=== PATIENT | female | born 1935 ===

== ENCOUNTER 2017-06-18 15:41 | Emergency (ER) | payer OTHER ==
[2017-06-18 15:41] VITALS: BMI 28.4
[2017-06-18 16:05] VITALS: RESP 17; TEMP 98.4
[2017-06-18 19:02] LABS: ALB/GLOB RATIO 1.5 (1.0-2.1); ALKALINE PHOSPHATASE 99 U/L (38-126); ALT/SGPT 51 U/L (9-52); AST/SGOT 36 U/L (14-36); BILIRUBIN,TOTAL 0.3 mg/dL (0.2-1.3); BLOOD UREA NITROGEN 16 mg/dL (7-17); CALCIUM 7.3 mg/dl (8.6-10.4); CARBON DIOXIDE 25 mmol/L (22-30); CHLORIDE 103 mmol/L (98-107); GFR AFRICAN-AMERICAN > 60; GLUCOSE,RANDOM 92 mg/dL (65-105); POTASSIUM 4.2 mmol/L (3.6-5.2); SODIUM 137 mmol/L (132-148); TOTAL PROTEIN 6.6 g/dL (6.3-8.3)
[2017-06-18 19:06] LABS: BASO # 0.1 K/uL (0.0-0.2); BASO % 0.9 % (0.0-2.0); EOS # 0.3 K/uL (0.0-0.7); EOS % 3.1 % (0.0-4.0); HEMATOCRIT 35.8 % (34.0-47.0); LYMPH % 31.7 % (20.0-40.0); MEAN CELL VOLUME 92.3 fL (81.0-99.0); MEAN CORPUSCULAR HEMOGLOBIN 30.9 pg (27.0-31.0); MEAN CORPUSCULAR HGB CONC 33.5 g/dL (33.0-37.0); MEAN PLATELET VOLUME 10.4 fL (7.2-11.7); MONO # 0.8 K/uL (0.0-0.8); MONO % 7.9 % (0.0-10.0); NRBC % 0.2 % (0.0-2.0); RED CELL DISTRIBUTION WIDTH 14.1 % (11.5-14.5); WHITE BLOOD COUNT 9.6 K/uL (4.8-10.8)
[2017-06-18 19:14] LABS: RBC URINE 1 /hpf (0-3); URINE BILIRUBIN NEGATIVE (NEGATIVE); URINE BLOOD NEGATIVE (NEGATIVE); URINE COLOR Straw (YELLOW); URINE GLUCOSE (UA) NORMAL (Normal); URINE KETONE NEGATIVE (NEGATIVE); URINE LEUKOCYTE ESTERASE NEG Leu/uL (Negative); URINE PROTEIN NEGATIVE (NEGATIVE); URINE UROBILINOGEN NORMAL mg/dL (0.2-1.0); WBC URINE 1 /hpf (0-5)
--- NOTE | 2017-06-18 19:29 | C.PDOC ---
History Of Present Illness 81yo female, presents to ED for evaluation of chronic painless bleeding per rectum with her bowel movement for years. Patient states she arrived to the [place] 1 [place] ago from [facility]. Patient was seen in this facility previously for similar presentation and was instructed to follow up outpatient however daughter states the appointment is in July and she is concerned regarding significant blood loss and anemia. Patient has an additional complaints of acute on chronic left knee pain. Time Seen by Provider: 06/18/17 16:24 Chief Complaint (Nursing): Lower Extremity Problem/Injury History Per: Patient History/Exam Limitations: no limitations Onset/Duration Of Symptoms: Persistent Current Symptoms Are (Timing): Still Present Past Medical History Reviewed: Historical Data, Nursing Documentation, Vital Signs Vital Signs: Last Vital Signs Temp 98.4 F 06/18/17 16:01 Pulse 69 06/18/17 16:01 Resp 17 06/18/17 16:01 BP 134/75 06/18/17 16:01 Pulse Ox 94 L 06/18/17 19:35 - Medical History PMH: Hypercholesterolemia Denies: Chronic Kidney Disease Family History: States: Unknown Family Hx - Social History Hx Alcohol Use: No Hx Substance Use: No - Immunization History Hx Tetanus Toxoid Vaccination: No Hx Influenza Vaccination: No Hx Pneumococcal Vaccination: No Review Of Systems Except As Marked, All Systems Reviewed And Found Negative. Gastrointestinal: Positive for: Hematochezia Musculoskeletal: Positive for: Other (bilateral knee pain) Physical Exam - Physical Exam Appears: Non-toxic, No Acute Distress Skin: Normal Color Eye(s): bilateral: Normal Inspection, PERRL, EOMI Neck: Normal ROM Cardiovascular: Rhythm Regular Respiratory: Normal Breath Sounds Rectal: Hemorrhoids (nontender internal hemorrhoid at 6 o'clock. no external hemorrhoids noted.) Extremity: Normal ROM (normal ROM of bilateral lower extremities. no effusions noted to knees.), No Deformity, No Swelling Neurological/Psych: Oriented x3 ED Course And Treatment - Laboratory Results Result Diagrams: 06/18/17 18:47 06/18/17 18:47 Lab Interpretation: Normal (ua neg.) O2 Sat by Pulse Oximetry: 94 - Other Rad b/l knees X-Ray: Interpreted by Me (+ minor arthritis, no effusion b/l.) Reevaluation Time: 19:27 Reassessment Condition: Improved Medical Decision Making Medical Decision Making: chronic internal hemorroids, (painless BRBPR for "months") pending outpatient eval end of Jul. No anemia, hgb wnl Prefers sooner eval- refer to Dr. Gilbert- [facility] today to consider banding. Disposition Doctor Will See Patient In The: Office Counseled Patient/Family Regarding: Studies Performed, Diagnosis - Disposition Referrals: Dez Chavez MD [Staff Provider] - Disposition: HOME/ ROUTINE Disposition Time: 19:28 Condition: GOOD Additional Instructions: Sigue con Dr. Gilbert- [facility]- para considerar ligas de los hemorroides internales Sanchez Hemoglobina esta normal. Radha NO tiene anemia. NO tiene infeccion de la orina. Sigue en la clinica Familiar para referencia al [facility] para los roberto de las rodillas. Sigue Tylenol 1000 mg 3-4 veces al lakeisha para dolor anel necessario. Instructions: Hemorrhoids (ED), Rectal Bleeding (ED), Arthritis (ED), Rubber Band Ligation (GEN) Forms: [employer] (Khmer) Print Language: SALVADOREAN - Clinical Impression Clinical Impression: Rectal bleeding, Arthritis of knee - Scribe Statement The provider has reviewed the documentation as recorded by the Heath Mckeon Provider Attestation: All medical record entries made by the Jwibmyron were at my direction and personally dictated by me. I have reviewed the chart and agree that the record accurately reflects my personal performance of the history, physical exam, medical decision making, and the department course for this patient. I have also personally directed, reviewed, and agree with the discharge instructions and disposition.
[2017-06-18 20:02] VITALS: BP 153/73; PULSE 95; O2SAT 95
--- NOTE | 2017-06-19 10:37 | RAD ---
PROCEDURE: Bilateral Knee Radiographs. HISTORY: R>L chronic knee pain, no trauma COMPARISON: None. FINDINGS: BONES: Right Knee: No fracture Left Knee: No fracture JOINTS: Right Knee: Medial femoral tibial arthrosis Left knee: Medial femoral tibial arthrosis SOFT TISSUES: Right Knee: Normal. Left Knee: Normal. JOINT EFFUSION: Right Knee: None. Left Knee: None. OTHER FINDINGS: None. IMPRESSION: Bilateral medial femoral tibial arthrosis - left knee slightly greater than right
== END 2017-06-18 20:04 | disposition home or self-care (01) ==
LOC: C.ER 15:41
DX: K62.5 Hemorrhage of anus and rectum (principal); M17.9 Osteoarthritis of knee, unspecified; E78.00 Pure hypercholesterolemia, unspecified